=== PATIENT | male | born 1955 | race Caucasian/White ===

== ENCOUNTER 2016-07-10 23:05 | Inpatient (IN) | payer OTHER ==
--- NOTE | 2016-07-10 23:14 | EDM.PDOC ---
ED HPI SEPSIS - General Chief Complaint: Fever Stated Complaint: TEMP F OF 104 HAD CHEMO TODAY Time Seen by Provider: 07/10/16 23:12 Source of Information: Reports: Patient, Family History Limitations: Reports: No limitations - History of Present Illness INITIAL COMMENTS - FREE TEXT/NARRATIVE: post chemo today, fever 104 @ home. some cough. - Related Data Allergies/ADRs: Allergies Allergy/AdvReac Type Severity Reaction Status Date / Time No Known Allergies Allergy Verified 07/10/16 23:14 Home Meds: Home Meds Aspirin [Ecotrin] 81 mg PO DAILY 12/05/14 [History] Lisinopril [Zestril] 10 mg PO DAILY 12/05/14 [History] atorvaSTATin [Lipitor] 40 mg PO BEDTIME 07/13/15 [History] metFORMIN [Glucophage] 1,000 mg PO BIDMEALS 07/10/16 [History] Past Medical History HEENT History: Reports: Impaired vision Cardiovascular History: Reports: Hypertension Gastrointestinal History: Reports: GERD Genitourinary History: Reports: Other (see below) Other Genitourinary History: bladder cancer, currently on 5th treatment of chemo with one to go. Musculoskeletal History: Reports: None Neurological History: Reports: Other (see below) Other Neuro History: hx left leg hemangioendothelialoma, radiation done Endocrine/Metabolic History: Reports: Diabetes, type II Immunologic History: Reports: Immunosuppression, Other (see below) Other Immunologic History: pt currently receiving chemo Oncologic (Cancer) History: Reports: Bladder Other Oncologic History: On chemotherapy - Infectious Disease History Infectious Disease History: Reports: Chicken pox, Measles - Past Surgical History HEENT Surgical History: Reports: Tonsillectomy GI Surgical History: Reports: None Male Surgical History: Reports: Other (see below) Other Male Surgeries/Procedures: shunt to right ureter Endocrine Surgical History: Reports: None Neurological Surgical History: Reports: None Musculoskeletal Surgical History: Reports: Other (see below) Other Musculoskeletal Surgeries/Procedures:: nerve damage to left elbow. Oncologic Surgical History: Reports: None Dermatological Surgical History: Reports: Skin biopsy Social & Family History - Family History Family Medical History: Noncontributory - Tobacco Use Smoking Status *Q: Never Smoker Second Hand Smoke Exposure: Yes - Recreational Drug Use Recreational Drug Use: No ED ROS GENERAL - Review of Systems Review Of Systems: ROS reveals no pertinent complaints other than HPI. ED EXAM, SEPSIS - Physical Exam Exam: See Below Exam Limited By: No limitations General Appearance: alert, WD/WN, mild distress, other (distraught) Ears: hearing grossly normal Throat/Mouth: Normal voice, No airway compromise Head: atraumatic Neck: non-tender, full range of motion Respiratory/Chest: no respiratory distress Cardiovascular: regular rate, rhythm GI/Abdominal: soft, non tender Neurological: alert, oriented, normal cognition, normal gait, no motor/sensory deficits Psychiatric: anxious Skin: Warm, Dry Course - Vital Signs Last Recorded V/S: Last Vital Signs Temp 38.1 C 07/11/16 00:28 Pulse 94 07/11/16 00:28 Resp 15 07/11/16 00:28 BP 148/71 H 07/11/16 00:28 Pulse Ox 96 07/11/16 00:28 - Orders/Labs/Meds Orders: Active Orders 24 hr Category Date Time Status CULTURE BLOOD [BC] Stat Lab 07/10/16 23:15 Received CULTURE URINE [RM] Stat Lab 07/11/16 00:19 Received Labs: Laboratory Tests 07/10/16 07/10/16 07/10/16 Range/Units 23:15 23:15 23:15 WBC 11.8 H (5.0-10.0) 10^3/uL RBC 4.11 L (4.6-6.2) 10^6/uL Hgb 13.1 L (14.0-18.0) g/dL Hct 39.7 L (40.0-54.0) % MCV 96.6 (80-100) fL MCH 31.9 (27.0-34.0) pg MCHC 33.0 (33.0-35.0) g/dL Plt Count 176 (150-450) 10^3/uL Neut % (Auto) 89.1 H (42.2-75.2) % Lymph % (Auto) 3.3 L (20.5-50.1) % [place] % (Auto) 7.0 (2-8) % Eos % (Auto) 0.3 L (1.0-3.0) % Baso % (Auto) 0.3 (0.0-1.0) % Sodium 133 L (135-145) mmol/L Potassium 3.9 (3.6-5.0) mmol/L Chloride 100 L (101-111) mmol/L Carbon Dioxide 23.0 (21.0-31.0) mmol/L Anion Gap 13.9 BUN 23 H (7-18) mg/dL Creatinine 1.2 (0.6-1.3) mg/dL Est Cr Clr Drug Dosing 67.11 mL/min Estimated GFR (MDRD) > 60 BUN/Creatinine Ratio 19.16 Glucose 164 H (74-105) mg/dL Lactic Acid 1.9 (0.5-2.2) mmol/L Calcium 8.8 (8.4-10.2) mg/dl Total Bilirubin 1.1 H (0.2-1.0) mg/dL AST 20 (10-42) IU/L ALT 23 (10-60) IU/L Alkaline Phosphatase 103 (42-121) IU/L Total Protein 7.1 (6.7-8.2) g/dl Albumin 4.1 (3.2-5.5) g/dl Globulin 3.0 Albumin/Globulin Ratio 1.37 Urine Color (YELLOW) Urine Appearance (CLEAR) Urine pH (5.0-9.0) Ur Specific [place] (1.005-1.030) Urine Protein (NEGATIVE) Urine Glucose (UA) (NEGATIVE) Urine Ketones (NEGATIVE) Urine Occult Blood (NEGATIVE) Urine Nitrite (NEGATIVE) Urine Bilirubin (NEGATIVE) Urine Urobilinogen (0.2-1.0) mg/dL Ur Leukocyte Esterase (NEGATIVE) Urine RBC /HPF Urine WBC (0-5/HPF) /HPF Ur Epithelial Cells /HPF Urine Bacteria (0-FEW/HPF) /HPF Urine Mucus /LPF 07/10/16 Range/Units 23:41 WBC (5.0-10.0) 10^3/uL RBC (4.6-6.2) 10^6/uL Hgb (14.0-18.0) g/dL Hct (40.0-54.0) % MCV (80-100) fL MCH (27.0-34.0) pg MCHC (33.0-35.0) g/dL Plt Count (150-450) 10^3/uL Neut % (Auto) (42.2-75.2) % Lymph % (Auto) (20.5-50.1) % [place] % (Auto) (2-8) % Eos % (Auto) (1.0-3.0) % Baso % (Auto) (0.0-1.0) % Sodium (135-145) mmol/L Potassium (3.6-5.0) mmol/L Chloride (101-111) mmol/L Carbon Dioxide (21.0-31.0) mmol/L Anion Gap BUN (7-18) mg/dL Creatinine (0.6-1.3) mg/dL Est Cr Clr Drug Dosing mL/min Estimated GFR (MDRD) BUN/Creatinine Ratio Glucose (74-105) mg/dL Lactic Acid (0.5-2.2) mmol/L Calcium (8.4-10.2) mg/dl Total Bilirubin (0.2-1.0) mg/dL AST (10-42) IU/L ALT (10-60) IU/L Alkaline Phosphatase (42-121) IU/L Total Protein (6.7-8.2) g/dl Albumin (3.2-5.5) g/dl Globulin Albumin/Globulin Ratio Urine Color Yellow (YELLOW) Urine Appearance Cloudy (CLEAR) Urine pH 5.5 (5.0-9.0) Ur Specific [place] 1.025 (1.005-1.030) Urine Protein >=300 H (NEGATIVE) Urine Glucose (UA) Negative (NEGATIVE) Urine Ketones Negative (NEGATIVE) Urine Occult Blood Large H (NEGATIVE) Urine Nitrite Negative (NEGATIVE) Urine Bilirubin Negative (NEGATIVE) Urine Urobilinogen 1.0 (0.2-1.0) mg/dL Ur Leukocyte Esterase Small H (NEGATIVE) Urine RBC >100 H /HPF Urine WBC Semi-packed H (0-5/HPF) /HPF Ur Epithelial Cells Rare /HPF Urine Bacteria Few (0-FEW/HPF) /HPF Urine Mucus Few H /LPF Meds: Medications Discontinued Medications Generic Name Dose Route Start Last Admin Trade Name Freq PRN Reason Stop Dose Admin Acetaminophen 650 mg 07/10/16 23:31 07/10/16 23:33 Tylenol PO 07/10/16 23:32 650 mg NOW ONE Administration Metoprolol Tartrate 2.5 mg 07/10/16 23:35 07/10/16 23:51 Lopressor IVPUSH 07/10/16 23:36 Not Given ONETIME ONE - Re-Assessments/Exams Free Text/Narrative Re-Assessment/Exam: 07/11/16 00:42 results discussed with Pt and case with Dr Hoffman who kindly admitted Pt. Departure - Departure Time of Disposition: 00:42 Disposition: Admitted As Inpatient 64 Condition: good Clinical Impression: UTI, Urinary tract infectious disease Bladder cancer Qualifiers: Bladder location: unspecified site Qualified Code(s): C67.9 - Malignant neoplasm of bladder, unspecified Forms: ED Department Discharge - My Orders Last 24 Hours: My Active Orders 07/10/16 23:15 CULTURE BLOOD [BC] Stat - Assessment/Plan Last 24 Hours: My Active Orders 07/10/16 23:15 CULTURE BLOOD [BC] Stat
[2016-07-10] MEDS ORDERED: Acetaminophen 325 MG Tab PO ONE (23:31)
[2016-07-10] MEDS ORDERED: Metoprolol Tartrate 5 MG/5 ML SDV IVPUSH ONE (23:35)
[2016-07-10 23:44] LABS: CHLORIDE,CL 100 mmol/L (101-111); SODIUM,NA 133 mmol/L (135-145)
[2016-07-11] MEDS ORDERED: Magnesium Hydroxide 400 MG/5 ML Susp 30 ML Cup PO PRN (00:42)
[2016-07-11] MEDS ORDERED: Bisacodyl 10 MG Supp RECTAL PRN (00:42)
[2016-07-11] MEDS ORDERED: Enoxaparin 40 MG/0.4 ML Syringe SUBCUT ONE (00:54)
[2016-07-11] MEDS ORDERED: Ondansetron 4 MG/2 ML SDV IV PRN (01:00)
[2016-07-11] MEDS: Meropenem 1 GM in Sodium Chloride 0.9% 100 ML IV SCH ×4 (01:30→18:10)
[2016-07-11] MEDS: Sodium Chloride 0.9% 1,000 ML IV SCH ×2 (01:30→21:38)
--- NOTE | 2016-07-11 04:35 | HP ---
REASON FOR ADMISSION: Fever and chills following chemotherapy for urothelial carcinoma of the bladder on 07/10/2016. 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 This was diagnosed on 04/25/2015. Approximately 1 year ago, he underwent his 1st round of chemotherapy; BCG is being used as the chemotherapy to treat his bladder cancer. On May 12, he underwent instillation of BCG. This was performed by Dr. Wilson at [facility] in [place]. BCG is instilled through a Back catheter into the bladder and then drained. Milan was said to have tolerated the procedure well, but his , Bree, who is a nurse here at the hospital, stated that on their drive back from [place], she noted that he was flushed. He got home, took a nap, he woke up about 6:00 p.m. and complained that he was "freezing." Bree took an oral temperature and it was 104 degrees. She gave him ibuprofen, temperature went down to 102, but at bedtime had gone back up to 104. He had chills, he had no real nausea, but had 1 limited episode of vomiting. He had 1 loose stool. No skin rashes, no cough, no abdominal pain. He does have some dysuria. He was brought to the emergency room for further evaluation. In the Emergency Department, he was found to have a temperature initially of 100.2 and this renetta to 103, heart rate was 117, blood pressure 162/80, respiratory rate 28, oxygen saturation 94% on room air. He was given Tylenol in the ER, physician also gave him 2.5 mg IV of Lopressor. Labs and chest x-ray were done and he was referred for admission. PAST MEDICAL HISTORY: Urothelial carcinoma of the bladder, 04/25/2015. At the time of yesterday's procedure, no recurrent cancer was seen. Hypertension. Type 2 diabetes for the last 3 to 4 years, controlled. Last hemoglobin A1c was 5.8%. Dyslipidemia. He had ureteral obstruction and had temporary stents placed. He had a diverticulum of the urinary bladder, which was removed at time of last treatment. He has obstructive sleep apnea and uses CPAP. PAST SURGICAL HISTORY: Ulnar nerve transposition in 1988. Tonsils and adenoids. Ureteral stent placement, 04/25/2015. Cystoscopy, 04/25/2015. Removal of bladder diverticulum, 04/25/2015. Excision of bladder tumor, 04/25/2015. FAMILY HISTORY: Mother has had a variety of cancers including colon, lung, and breast, all separate tumors and is doing fairly well. His father, Gary, had diabetes and of cerebrovascular disease after he suffered a stroke. He had 3 sisters, 1 brother, 1 stepbrother. Stepbrother is , 1 sister had polio. SOCIAL HISTORY: Milan is to Bree, who is one of our nurses. They have 2 sons. One son, now 28, had Burkitt's lymphoma at the age of 7 and has done well. They have no grandchildren. Milan has never smoked cigarettes and drinks occasional social alcohol. He works for [employer] in the [employer] program. REVIEW OF SYSTEMS: Received the first of 3 planned treatments with BCG on 07/10/2016. Following the treatment, he was flushed. On arrival at home, he developed temperature of 104 degrees. He complained of chills, vomited x1. No blood in the emesis or loose stools. No blood by rectum. No skin rashes. No cough or shortness of breath. No abdominal pain. No calf or leg pain. Bree stated he did have a limited cough on the morning of the treatment, but no ongoing cough and no productive cough. In June 2015 following treatment at that time, he also developed high fevers and was admitted and treated for a urinary tract infection. We did look up the side effects of BCG. A common side effect is fever, but serious side effects include infections. No recent vision or hearing changes. No sore throat. No swallowing difficulties. He does not wear dentures or hearing aids. He has never had cataracts. He does wear reading glasses. No recent falls or injuries. No recent hospitalizations. CURRENT MEDICATIONS: 1. Atorvastatin 40 mg at bedtime. 2. Lisinopril 10 mg daily. 3. Metformin 1000 mg twice a day with meals. 4. Aspirin EC 81 mg daily. ALLERGIES: No known allergies. PHYSICAL EXAMINATION: Vital Signs: Blood pressure 134/56 on the left, 133/62 on the right. Heart rate has come down to 78, and is regular. Respiratory rate has come down to 16, is regular. Oxygen saturation is 95% on room air. Temperature on arrival on the nursing unit was 97.6, down from a high of 103 degrees in the Emergency Department. Height 5 feet 11 inches, weight 236 pounds. HEENT: WNL. Moist mucous membranes. Sclerae non-icteric. No adenopathy. Chest: clear but diminished bilateral breath sounds. Heart: regular, no murmurs. Abdomen: obese, soft, benign. Non-tender without guarding or rebound. Exts: calves soft, non-tender. Palpable pulses. Neuro: intact. Skin: clear. LABORATORY DATA AND IMAGING: CBC showed a white count of 11.8, with 89% neutrophils; hemoglobin and hematocrit were 13 and 39.7. Chemistry showed sodium 133, potassium 3.9, BUN and creatinine were 23 and 1.2 with a GFR of more than 60, and a creatinine clearance of 67. Lactic acid was normal at 1.9. LFTs were unremarkable. Urinalysis showed a cloudy yellow urine with a specific gravity of 1.025. Microscopic exam showed more than 100 RBCs per high-power field, and the high- power salmeron were also semi-packed with WBCs. Blood cultures and urine culture were ordered. A 2-view chest x-ray ordered in the emergency room, did not show an acute infiltrate and official reading is pending. IMPRESSION: A 61-year-old gentleman with known history of bladder cancer. He received an intra-bladder BCG treatment on 07/10/2016, and now presents with a temperature to 104 degrees and an apparent urinary tract infection. PLAN: 1. Denbo was admitted as an acute inpatient to the nursing unit. 2. He was started on meropenem 1 g IV every 8 hours. This was chosen as broad- spectrum antibiotic given his recent history. 3. His usual medications will be continued. 4. Tylenol was ordered for management of the fever. 5. He was started on normal saline at 50 mL an hour to prevent dehydration. 6. He was placed on a regular diet. 7. For DVT prophylaxis, MALIK hose were placed and enoxaparin 40 mg once daily was ordered. CODE STATUS: Full code. CONDITION AT THE TIME OF ADMISSION: Hemodynamically and neurologically stable. [facility] /[id number] [facility]
[2016-07-11] MEDS: Acetaminophen 325 MG Tab PO PRN ×2 (05:36→15:29)
[2016-07-11] MEDS: metFORMIN 500 MG Tab PO SCH ×2 (10:19→17:53)
[2016-07-11] MEDS: Aspirin 81 MG Tab.EC PO SCH (10:19)
[2016-07-11] MEDS: Lisinopril 10 MG Tab PO SCH (10:20)
[2016-07-12] MEDS: Meropenem 1 GM in Sodium Chloride 0.9% 100 ML IV SCH ×3 (03:35→18:04)
[2016-07-12] MEDS: Enoxaparin 40 MG/0.4 ML Syringe SUBCUT SCH (08:42)
[2016-07-12] MEDS: metFORMIN 500 MG Tab PO SCH ×2 (08:43→18:04)
[2016-07-12] MEDS: Lisinopril 10 MG Tab PO SCH (08:44)
[2016-07-12] MEDS: Aspirin 81 MG Tab.EC PO SCH (08:44)
--- NOTE | 2016-07-12 10:21 | PCM.PN ---
- General Info Date of Service: 07/12/16 Admission Dx/Problem (Free Text): This is a 61 y/O Moderately Obese male with Past Medical history of Urothelial Carcinoma of the bladder Dxed on 04/25/15, Hypertension, Diabetes II, Dyslipidemia, Pt was admitted after he he had BCG instilled through a Back Catheter into the bladder and drained on 07/10/16 at [facility]. on their way home to [place] he was flushed and at home he was "freezing" and home temperature was 104 F. The temperature was taken by his Bree who is a RN at [facility]. He was given Ibuprofen and the temperature down to 102 but again went back to 104 at bed time. He also had chill, but no nausea but vomited once at home. He was brought into [facility] ER and got admitted. Subjective Update: Today he is feeling good, No fever or chill, appetite is good and had BM last night Functional Status: Reports: pain controlled, tolerating diet, ambulating, urinating - Review of Systems General: Reports: Appetite (good). Denies: Fever, Malaise, Chills HEENT: Denies: headaches, post nasal drip, sinus congestion, sore throat Pulmonary: Denies: shortness of breath, pleuritic chest pain, cough, sputum, wheezing Cardiovascular: Denies: Chest Pain, Dyspnea on Exertion, Lightheadedness Gastrointestinal: Denies: Abdominal pain, Diarrhea, Nausea, Vomiting Genitourinary: Denies: dysuria, burning, pain, urgency, flank pain Musculoskeletal: Denies: neck pain, shoulder pain, foot pain, joint pain Skin: Denies: cyanosis, jaundice, bruising, pruritis, rash Neurological: Denies: Confusion, Tingling, Tremors, Weakness Psychiatric: Denies: confusion, anxiety, hallucinations - Patient Data Vitals - most recent: Last Vital Signs Temp 36.4 C 07/12/16 07:40 Pulse 84 07/12/16 07:40 Resp 20 07/12/16 07:40 BP 139/93 H 07/12/16 08:44 Pulse Ox 97 07/12/16 07:40 Weight - most recent: 107.456 kg I&O - last 24 hours: Intake & Output 07/11/16 07/12/16 07/12/16 22:59 06:59 14:59 Intake Total 1263 705 Output Total 500 600 300 Balance 763 105 -300 Lab Results last 24 hrs: Laboratory Results - last 24 hr 07/11/16 07/11/16 07/12/16 Range/Units 11:08 17:27 07:58 POC Glucose 131 H 186 H 132 H (70-105) mg/dl Med Orders - Current: Current Medications Acetaminophen (Tylenol) 650 mg PO Q4H PRN PRN Reason: Pain (mild 1-3 )/fever Last Admin: 07/11/16 15:29 Dose: 650 mg Aspirin (Halfprin) 81 mg PO DAILY [facility] Last Admin: 07/12/16 08:44 Dose: 81 mg Bisacodyl (Dulcolax) 10 mg RECTAL DAILY PRN PRN Reason: Constipation Enoxaparin Sodium (Lovenox) 40 mg SUBCUT DAILY [facility] Last Admin: 07/12/16 08:42 Dose: 40 mg Sodium Chloride (Normal Saline) 1,000 mls @ 50 mls/hr IV ASDIRECTED [facility] Last Admin: 07/11/16 21:38 Dose: 50 mls/hr Meropenem 1 gm/ Sodium (Chloride) 100 mls @ 200 mls/hr IV Q8H [facility] Last Admin: 07/12/16 03:35 Dose: 200 mls/hr Lisinopril (Prinivil) 10 mg PO DAILY [facility] Last Admin: 07/12/16 08:44 Dose: 10 mg Magnesium Hydroxide (Milk Of Magnesia) 30 ml PO DAILY PRN PRN Reason: Constipation Metformin HCl (Glucophage) 1,000 mg PO BIDMEALS [facility] Last Admin: 07/12/16 08:43 Dose: 1,000 mg Ondansetron HCl (Zofran) 4 mg IV Q6H PRN PRN Reason: Nausea/Vomiting Sodium Chloride (Saline Flush) 10 ml FLUSH ASDIRECTED PRN PRN Reason: Keep Vein Open Discontinued Medications Acetaminophen (Tylenol) 650 mg PO NOW ONE Stop: 07/10/16 23:32 Last Admin: 07/10/16 23:33 Dose: 650 mg Enoxaparin Sodium (Lovenox) 40 mg SUBCUT DAILY ONE Stop: 07/11/16 00:55 Last Admin: 07/11/16 01:33 Dose: 40 mg Meropenem 1 gm/ Sodium (Chloride) 100 mls @ 200 mls/hr IV Q8H [facility] Last Admin: 07/11/16 10:40 Dose: Not Given Metoprolol Tartrate (Lopressor) 2.5 mg IVPUSH ONETIME ONE Stop: 07/10/16 23:36 Last Admin: 07/10/16 23:51 Dose: Not Given - Exam Quality Assessment: DVT prophylaxis. No: supplemental oxygen, urine catheter General: alert, oriented, cooperative, no acute distress HEENT: Pupils equal, Pupils reactive, Mucous membr. moist/pink Neck: supple, no JVD, no thyromegaly. No: lymphadenopathy Lungs: Clear to auscultation, Normal respiratory effort. No: Crackles, Rales, Rhonchi, Wheezing Cardiovascular: Regular Rate, Regular Rhythm, No Murmurs Abdomen: bowel sounds present, soft, no tenderness, no distension. No: guarding (Male) Exam: Deferred Back Exam: normal inspection, full range of motion Extremities: no edema, normal pulses, no calf tenderness Skin: warm, dry, intact Neurological: no new focal deficit Psy/Mental Status: alert, normal affect, normal mood - Problem List & Annotations (1) Bladder cancer SNOMED Code(s): 713279179 Code(s): C67.9 - MALIGNANT NEOPLASM OF BLADDER, UNSPECIFIED Status: Acute Current Visit: Yes (2) Fever and chills SNOMED Code(s): 326293406 Code(s): R50.9 - FEVER, UNSPECIFIED Status: Acute Priority: High Current Visit: No Onset Date: ~07/10/16 (3) UTI (urinary tract infection) SNOMED Code(s): 60766536 Code(s): N39.0 - URINARY TRACT INFECTION, SITE NOT SPECIFIED Status: Acute Priority: High Current Visit: No Onset Date: ~07/11/16 Qualifiers: Urinary tract infection type: acute cystitis Hematuria presence: with hematuria Qualified Code(s): N30.01 - Acute cystitis with hematuria (4) Diabetes type 2, controlled SNOMED Code(s): 26636399 Code(s): E11.9 - TYPE 2 DIABETES MELLITUS WITHOUT COMPLICATIONS Status: Chronic Current Visit: No (5) Hypertension SNOMED Code(s): 51136278 Code(s): I10 - ESSENTIAL (PRIMARY) HYPERTENSION Status: Chronic Current Visit: No - Problem List Review Problem List Initiated/Reviewed/Updated: Yes - Plan Plan:: Mr. Rodgers is a 61 y/O Male with known history of Bladder cancer, has received an intra-bladder BCG treatment on 07/10/16 and presented to ED with Fever, Chill and UTI 1. Papillary Urothelial Carcinoma of the bladder: It's dXed on 04/25/15 -He is on treatment and getting floowed by Urology at [facility] , He will have second BCG treatment again on 07/17/16 2. Fever and Chill: This was likely from UTI as well as rxn to medication -He is afbrile since admission and Urine culture mixed emely and B/C showing no growth -Will continue Tylenol as nedded 3. Likely UTI: I reviewed U/A, it was cloudy with >300 mg/dl of protein in urine , but Nitrite was negative, and small Leukocyste esterase -He is now emperically treated for UTI with Meropenem and doing well -Will continue the current abx 4. Hypertension: Bp acceptable and will continue Lisinopril at 10 mg daily 5. Diabetes II: on oral hypoglycemic, Metformin 100 mg BID 6. DVT prophylaxis: On Enoxapain 7. Code Status: Full Code
--- NOTE | 2016-07-12 10:28 | PN ---
DATE: 07/11/2016 SUBJECTIVE: Mr. Rodgers was admitted overnight. He has a history of bladder cancer which was diagnosed in April of 2015. He has been treated with BCG. Yesterday, he started a new round of chemotherapy and received the first of 3 planned treatments. He has BCG instilled into the bladder through a Back catheter which is later drained out. He and his were on their way back from [place] when he became flushed. He came home, took a nap. When he got up, his temperature was 104; took ibuprofen, temperature went down to 102 but went back up again to 104. He had chills and came to the emergency room, was evaluated and admitted. At the time of admission, white count was 11.8 with a left shift. Urinalysis showed semi-packed white cells. One set of blood cultures was ordered through the ER and a urine culture was also ordered. Mr. Rodgers was admitted and was started on meropenem 1 g IV every 8 hours. He is also on IV normal saline. Review of his clinical data shows that he has done well overnight. Temperature gradually came down until this afternoon when it once again spiked to 101.6. Two more sets of blood cultures were drawn at that time. He has been afebrile since that time. The first set of blood cultures remains with no growth, and the urine culture is showing a mixed Barbara. He is taking in adequate fluids. He is voiding. There is no gross hematuria, and no dysuria. OBJECTIVE: General: He is lying comfortably in bed. He feels and looks much better. He voices no new concerns or complaints. Vital Signs: Blood pressure is 132/72, pulse 76, respiratory rate 20, oxygen saturation 98% on room air. Temperature this morning is 98.4. HEENT: Unremarkable. Mouth showed moist mucous membranes. Chest: Showed clear but diminished bilateral breath sounds. Abdomen: Obese, soft, benign, completely nontender. No guarding. No rebound. Extremities: Showed the calves to be soft and nontender. Neurologic: He was intact. LABORATORY DATA: His blood sugars are being monitored and these have been within acceptable limits. PLAN: We will continue on meropenem 1 g IV every 8 hours. He also continues on IV fluids for now as he has had fever overnight. Blood sugars are managed with metformin. We will continue to monitor the results of the three sets of blood cultures as well as urine culture. A CBC and BMP have been ordered for July 13. Overall, Mr. Rodgers is improved and doing better and can probably be discharged to home once cultures have shown no growth and he is clinically improved. We will communicate with his urologist, Dr. Jadiel Wilson, in [place] and inform him of the admission. [facility] /[id number] MTDD
[2016-07-12] MEDS: Sodium Chloride 0.9% 1,000 ML IV SCH (19:48)
[2016-07-13] MEDS: Meropenem 1 GM in Sodium Chloride 0.9% 100 ML IV SCH ×3 (02:53→19:16)
[2016-07-13 07:13] LABS: CHLORIDE,CL 103 mmol/L (101-111); SODIUM,NA 136 mmol/L (135-145)
[2016-07-13] MEDS: Lisinopril 10 MG Tab PO SCH (09:33)
[2016-07-13] MEDS: Enoxaparin 40 MG/0.4 ML Syringe SUBCUT SCH (09:34)
[2016-07-13] MEDS: metFORMIN 500 MG Tab PO SCH ×2 (09:35→16:59)
[2016-07-13] MEDS: Aspirin 81 MG Tab.EC PO SCH (09:36)
--- NOTE | 2016-07-13 11:02 | PCM.PN ---
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 on their way home to [place] he was flushed and at home he was "freezing" and home temperature was 104 F. The temperature was taken by his Bree who is a RN at [facility]. He was given Ibuprofen and the temperature down to 102 but again went back to 104 at bed time. He also had chill, but no nausea but vomited once at home. He was brought into [facility] ER and got admitted. He will go home on oral abx ( either Cipro or Levofloxacin) Subjective Update: Today he is feeling good, No fever or chill ( over the last 48 hrs) , appetite is good and had BM last night and has no respiratory problem. Functional Status: Reports: pain controlled, tolerating diet, ambulating, urinating - Review of Systems General: Reports: Appetite (good). Denies: Fever, Malaise, Chills HEENT: Denies: dysphasia, ear pain, headaches, sinus congestion Pulmonary: Denies: shortness of breath, pleuritic chest pain, cough, sputum, wheezing Cardiovascular: Denies: Chest Pain, Edema, Lightheadedness Gastrointestinal: Denies: Abdominal pain, Diarrhea, Nausea, Vomiting Genitourinary: Denies: dysuria, burning, urgency, flank pain Musculoskeletal: Denies: neck pain, shoulder pain, back pain, foot pain, joint pain Skin: Denies: cyanosis, jaundice, bruising, pruritis, rash Neurological: Denies: Confusion, Tingling, Tremors Psychiatric: Denies: confusion, anxiety - Patient Data Vitals - most recent: Last Vital Signs Temp 36.9 C 07/13/16 08:21 Pulse 76 07/13/16 08:21 Resp 20 07/13/16 08:21 BP 168/83 H 07/13/16 09:33 Pulse Ox 97 07/13/16 08:21 Weight - most recent: 107.456 kg I&O - last 24 hours: Intake & Output 07/12/16 07/13/16 07/13/16 22:59 06:59 14:59 Intake Total 876 400 Output Total 640 Balance 876 -240 Lab Results last 24 hrs: Laboratory Results - last 24 hr 07/12/16 07/13/16 07/13/16 Range/Units 17:17 06:18 06:18 WBC 5.7 (5.0-10.0) 10^3/uL RBC 3.58 L (4.6-6.2) 10^6/uL Hgb 11.4 L (14.0-18.0) g/dL Hct 35.4 L (40.0-54.0) % MCV 98.9 (80-100) fL MCH 31.8 (27.0-34.0) pg MCHC 32.2 L (33.0-35.0) g/dL RDW Not Reportable RDW Coeff of Betsy Not Reportable Plt Count 149 L (150-450) 10^3/uL MPV Not Reportable Neutrophils % (Manual) 66 % Lymphocytes % (Manual) 20 % Monocytes % (Manual) 9 % Eosinophils % (Manual) 5 % Sodium 136 (135-145) mmol/L Potassium 4.0 (3.6-5.0) mmol/L Chloride 103 (101-111) mmol/L Carbon Dioxide 26.0 (21.0-31.0) mmol/L Anion Gap 11.0 BUN 13 (7-18) mg/dL Creatinine 0.9 (0.6-1.3) mg/dL Est Cr Clr Drug Dosing 89.48 mL/min Estimated GFR (MDRD) > 60 Glucose 166 H (74-105) mg/dL POC Glucose 120 H (70-105) mg/dl Calcium 8.6 (8.4-10.2) mg/dl 07/13/16 Range/Units 07:53 WBC (5.0-10.0) 10^3/uL RBC (4.6-6.2) 10^6/uL Hgb (14.0-18.0) g/dL Hct (40.0-54.0) % MCV (80-100) fL MCH (27.0-34.0) pg MCHC (33.0-35.0) g/dL RDW RDW Coeff of Betsy Plt Count (150-450) 10^3/uL MPV Neutrophils % (Manual) % Lymphocytes % (Manual) % Monocytes % (Manual) % Eosinophils % (Manual) % Sodium (135-145) mmol/L Potassium (3.6-5.0) mmol/L Chloride (101-111) mmol/L Carbon Dioxide (21.0-31.0) mmol/L Anion Gap BUN (7-18) mg/dL Creatinine (0.6-1.3) mg/dL Est Cr Clr Drug Dosing mL/min Estimated GFR (MDRD) Glucose (74-105) mg/dL POC Glucose 132 H (70-105) mg/dl Calcium (8.4-10.2) mg/dl Devonte Results last 24 hrs: Microbiology 07/11/16 15:50 Aerobic Blood Culture - Preliminary Blood - Venous - Lab Draw NO GROWTH AFTER 1 DAY Anaerobic Blood Culture - Preliminary NO GROWTH AFTER 1 DAY 07/11/16 15:45 Aerobic Blood Culture - Preliminary Blood - Venous NO GROWTH AFTER 1 DAY Anaerobic Blood Culture - Preliminary NO GROWTH AFTER 1 DAY Med Orders - Current: Current Medications Acetaminophen (Tylenol) 650 mg PO Q4H PRN PRN Reason: Pain (mild 1-3 )/fever Last Admin: 07/11/16 15:29 Dose: 650 mg Aspirin (Halfprin) 81 mg PO DAILY [facility] Last Admin: 07/13/16 09:36 Dose: 81 mg Bisacodyl (Dulcolax) 10 mg RECTAL DAILY PRN PRN Reason: Constipation Enoxaparin Sodium (Lovenox) 40 mg SUBCUT DAILY [facility] Last Admin: 07/13/16 09:34 Dose: 40 mg Meropenem 1 gm/ Sodium (Chloride) 100 mls @ 200 mls/hr IV Q8H [facility] Last Admin: 07/13/16 10:36 Dose: 200 mls/hr Lisinopril (Prinivil) 10 mg PO DAILY [facility] Last Admin: 07/13/16 09:33 Dose: 10 mg Magnesium Hydroxide (Milk Of Magnesia) 30 ml PO DAILY PRN PRN Reason: Constipation Metformin HCl (Glucophage) 1,000 mg PO BIDMEALS [facility] Last Admin: 07/13/16 09:35 Dose: 1,000 mg Ondansetron HCl (Zofran) 4 mg IV Q6H PRN PRN Reason: Nausea/Vomiting Sodium Chloride (Saline Flush) 10 ml FLUSH ASDIRECTED PRN PRN Reason: Keep Vein Open Discontinued Medications Acetaminophen (Tylenol) 650 mg PO NOW ONE Stop: 07/10/16 23:32 Last Admin: 07/10/16 23:33 Dose: 650 mg Enoxaparin Sodium (Lovenox) 40 mg SUBCUT DAILY ONE Stop: 07/11/16 00:55 Last Admin: 07/11/16 01:33 Dose: 40 mg Meropenem 1 gm/ Sodium (Chloride) 100 mls @ 200 mls/hr IV Q8H [facility] Last Admin: 07/11/16 10:40 Dose: Not Given Sodium Chloride (Normal Saline) 1,000 mls @ 50 mls/hr IV ASDIRECTED [facility] Last Admin: 07/12/16 19:48 Dose: 50 mls/hr Metoprolol Tartrate (Lopressor) 2.5 mg IVPUSH ONETIME ONE Stop: 07/10/16 23:36 Last Admin: 07/10/16 23:51 Dose: Not Given - Exam Quality Assessment: DVT prophylaxis. No: supplemental oxygen, urine catheter General: alert, oriented, cooperative, no acute distress HEENT: Pupils equal, Pupils reactive, Mucous membr. moist/pink Neck: supple, no thyromegaly. No: lymphadenopathy Lungs: Clear to auscultation, Normal respiratory effort. No: Crackles, Rales, Wheezing Cardiovascular: Regular Rate, Regular Rhythm, Murmurs Abdomen: bowel sounds present, soft, no tenderness, distension (Male) Exam: Deferred Back Exam: normal inspection Extremities: no edema, normal pulses, no calf tenderness Skin: warm, dry, intact Neurological: no new focal deficit, normal speech, normal tone Psy/Mental Status: alert, normal affect, normal mood - Problem List & Annotations (1) Bladder cancer SNOMED Code(s): 028265607 Code(s): C67.9 - MALIGNANT NEOPLASM OF BLADDER, UNSPECIFIED Status: Acute Current Visit: Yes (2) Fever and chills SNOMED Code(s): 493942596 Code(s): R50.9 - FEVER, UNSPECIFIED Status: Acute Priority: High Current Visit: No Onset Date: ~07/10/16 (3) UTI (urinary tract infection) SNOMED Code(s): 66022448 Code(s): N39.0 - URINARY TRACT INFECTION, SITE NOT SPECIFIED Status: Acute Priority: High Current Visit: No Onset Date: ~07/11/16 Qualifiers: Urinary tract infection type: acute cystitis Hematuria presence: with hematuria Qualified Code(s): N30.01 - Acute cystitis with hematuria (4) Diabetes type 2, controlled SNOMED Code(s): 41652113 Code(s): E11.9 - TYPE 2 DIABETES MELLITUS WITHOUT COMPLICATIONS Status: Chronic Current Visit: No (5) Hypertension SNOMED Code(s): 26187225 Code(s): I10 - ESSENTIAL (PRIMARY) HYPERTENSION Status: Chronic Current Visit: No - Problem List Review Problem List Initiated/Reviewed/Updated: Yes - Plan Plan:: Mr. Rodgers is a 61 y/O Male with known history of Bladder cancer, has received an intra-bladder BCG treatment on 07/10/16 and few hours later after coming from [place], presented to ED with Fever, Chill and UTI 1. Papillary Urothelial Carcinoma of the bladder: It's dXed on 04/25/15 -He is on treatment and getting floowed by Urology at [facility] , He will have second BCG treatment again on 07/17/16 2. Fever and Chill: This was likely from UTI as well as rxn to medication -He is afbrile since admission ( over 48 hrs) and Urine culture showed mixed emely and B/C showing no growth -Will continue Tylenol as nedded for Temp >100 3. Likely UTI: I reviewed U/A, it was cloudy with >300 mg/dl of protein in urine , but Nitrite was negative, and small Leukocyste esterase -He is now emperically treated for UTI with Meropenem and doing well -Will continue the current abx 4. Hypertension: Bp acceptable and will continue Lisinopril at 10 mg daily 5. Diabetes II: on oral hypoglycemic, Metformin 100 mg BID 6. DVT prophylaxis: On Enoxapain 7. Code Status: Full Code
[2016-07-13] MEDS: Sodium Chloride 0.9% 10 ML Syringe FLUSH PRN ×2 (19:10→19:56)
[2016-07-14] MEDS: Sodium Chloride 0.9% 10 ML Syringe FLUSH PRN ×3 (03:09→10:33)
[2016-07-14] MEDS: Meropenem 1 GM in Sodium Chloride 0.9% 100 ML IV SCH ×2 (03:11→10:34)
[2016-07-14] MEDS: metFORMIN 500 MG Tab PO SCH (08:22)
[2016-07-14] MEDS: Aspirin 81 MG Tab.EC PO SCH (08:22)
[2016-07-14] MEDS: Lisinopril 10 MG Tab PO SCH (08:23)
[2016-07-14] MEDS: Enoxaparin 40 MG/0.4 ML Syringe SUBCUT SCH (08:24)
[2016-07-14 11:21] VITALS: BP 167/64
--- NOTE | 2016-07-16 08:02 | DISCH ---
FINAL DIAGNOSES: 1. History of fever and chills. 2. Suspect a urinary tract infection. 3. Urothelial bladder carcinoma. 4. Hypertension. 5. Diabetes. HISTORY OF PRESENT ILLNESS: The patient is a 61-year-old male was admitted on July 11, 2016 because of episodes of fever and chills. Documented temperature at 104, decreased at home. Had 1 episode of loose stool. He has been getting BCG chemotherapy for his malignancy. On admission, the patient was noted to have blood pressure of 134/56, heart rate of 78 beats per minute, respirations 16 breaths per minute, oxygen saturation 95%. Emergency room temperature of 103 degrees Fahrenheit. Most of the documented physical exam is unremarkable. LABORATORY DATA: Workup done in the hospital. Initial urinalysis showed large occult blood with more than 100 rbc and packed field wbc. Microbiologic studies did not show any growth on blood culture. Initially urine culture showed mixed gram-positive organisms 3 colony types. HOSPITAL COURSE: The patient was admitted in the medical-surgical bed. He was started on empiric meropenem 1 g every 8 hours. The rest of his medications were continued. The patient remained hemodynamically stable during his stay. Started to feel better. He has been afebrile since admission. The patient will have a followup appointment with [facility] with regard to his second BCG treatment. DISCHARGE EXAM: Vital Signs: Blood pressure 167/64, heart rate of 64 beats per minute, respirations 20 breaths per minute, oxygen saturation 97%. DISCHARGE INSTRUCTIONS: The patient is to follow up with his primary care provider within 1 week from discharge to complete the antibiotics and monitor for intolerance on oral antibiotics. Keep adequate hydration. Follow up within 1 week or to come back to the emergency room if with emergent health concerns. [facility] /[id number]
== END 2016-07-14 12:32 | disposition home or self-care (01) | DRG 687 ==
LOC: DL.ED 23:05 → DL.MS 07-11 00:42 → DL.ED 07-11 01:01
PROVIDERS: ADMIT Internal Medicine; ATTEND Internal Medicine
DX: C67.9 Malignant neoplasm of bladder, unspecified (principal); N39.0 Urinary tract infection, site not specified; G47.33 Obstructive sleep apnea (adult) (pediatric); Z96.0 Presence of urogenital implants; I10 Essential (primary) hypertension; E11.9 Type 2 diabetes mellitus without complications; E78.5 Hyperlipidemia, unspecified; E66.9 Obesity, unspecified; Z79.84 Long term (current) use of oral hypoglycemic drugs; Z79.82 Long term (current) use of aspirin
CPT/HCPCS: 36415; 71020; 80048; 80053; 81001; 82962; 83605; 85025; 87040; 87086; 99285; A9270-GY; J1650; J2185; J7030; J7050

== ENCOUNTER 2019-08-17 08:54 | Emergency (ER) | payer MEDICARE, OTHER ==
--- NOTE | 2019-08-17 09:08 | EDM.PDOC ---
ED HPI GENERAL MEDICAL PROBLEM - General Chief Complaint: Laceration Stated Complaint: CUT ON LEG Time Seen by Provider: 08/17/19 09:05 Source of Information: Reports: Patient, Old Records, RN, RN Notes Reviewed History Limitations: Reports: No Limitations - History of Present Illness INITIAL COMMENTS - FREE TEXT/NARRATIVE: Pt presents to ER with c/o cut to right lower leg yesterday that he cannot get to stop bleeding. He accidentally cut himself on clean/new tin kelsey. Denies any other injury. Last Tetanus vaccine >10 years ago. Onset: Sudden Onset Date: 08/16/19 Duration: Constant Quality: Reports: Ache Severity: Mild Improves with: Reports: None Worsens with: Reports: None Treatments EVP: Reports: Home Treatments (Dressing) - Related Data Allergies Allergy/AdvReac Type Severity Reaction Status Date / Time No Known Allergies Allergy Verified 07/10/16 23:14 Home Meds: Home Meds lisinopriL [Zestril] 10 mg PO DAILY 12/05/14 [History] atorvaSTATin [Lipitor] 40 mg PO BEDTIME 07/13/15 [History] metFORMIN [Glucophage] 1,000 mg PO BIDMEALS 07/10/16 [History] Insulin Aspart [NovoLOG] 8 - 15 units SQ TID 08/17/19 [History] Insulin Degludec [Tresiba] 20 units SQ BEDTIME 08/17/19 [History] Levothyroxine Sodium [Levoxyl] 50 mcg PO DAILY 08/17/19 [History] Oxybutynin Chloride [Ditropan Xl] 10 mg PO DAILY 08/17/19 [History] Triamterene/Hydrochlorothiazid [Triamterene-HCTZ 37.5-25 MG] 1 tab PO DAILY 06/02 [History] Past Medical History HEENT History: Reports: Impaired Vision Cardiovascular History: Reports: Hypertension Respiratory History: Reports: None, Pneumonia, Recurrent, Sleep Apnea Gastrointestinal History: Reports: None Genitourinary History: Reports: Other (See Below) Other Genitourinary History: bladder cancer, Prophylactically had 1st chemo on 11 of july Musculoskeletal History: Reports: None Neurological History: Reports: Other (See Below) Other Neuro History: hx left leg hemangioendothelialoma, radiation done Endocrine/Metabolic History: Reports: Diabetes, Type II Hematologic History: Reports: Blood Transfusion(s) Immunologic History: Reports: Immunosuppression, Other (See Below) Other Immunologic History: pt currently receiving chemo Oncologic (Cancer) History: Reports: Bladder, Other (See Below) Other Oncologic History: 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 ED EXAM, GENERAL - Physical Exam Exam: See Below Exam Limited By: No Limitations General Appearance: Alert, WD/WN, No Apparent Distress Head: Atraumatic, Normocephalic Respiratory/Chest: No Respiratory Distress Cardiovascular: Normal Peripheral Pulses Extremities: Normal Range of Motion, Other (Rt anterior lower leg with 3cm linear flap laceration with slow persistent oozing of blood. No FB, no signs of infection.) Neurological: Alert, Oriented, Normal Gait, No Motor/Sensory Deficits Psychiatric: Anxious Skin Exam: Warm, Dry ED TRAUMA EXTREMITY PROCEDURES - Laceration/Wound Repair Right Anterior Leg Lac/Wound Length In cm: 3 Appearance: Subcutaneous, Linear, Clean Distal NVT: Neuro & Vascular Intact, No Tendon Injury Anesthetic Type: Local Local Anesthesia - Lidocaine (Xylocaine): 1% with EPI Local Anesthetic Volume: Other (10) Skin Prep: Chlorhexidine (Hibiciens), Saline Saline Irrigation (cc's): 500 Exploration/Debridement/Repair: Wound Explored, In a Bloodless Field, Explored to Base, Minimal Debridement, Minimally Undermined Closed With: Sutures Suture Size: 3-0 # of Sutures: 3 Suture Type: Nylon, Mattress Drain Placement: No Sterile Dressing Applied: Nurse Tetanus Status Addressed: Yes Complications: No Course - Vital Signs Last Recorded V/S: Last Vital Signs Temp 97.5 F 08/17/19 09:04 Pulse 66 08/17/19 09:04 Resp 18 08/17/19 09:04 BP 142/82 H 08/17/19 09:04 Pulse Ox 98 08/17/19 09:04 - Orders/Labs/Meds Orders: Active Orders 24 hr Category Date Time Status Vaccines to be Administered [RC] PER UNIT ROUTINE Care 08/17/19 09:08 Active Meds: Medications Discontinued Medications Generic Name Dose Route Start Last Admin Trade Name Tom PRN Reason Stop Dose Admin Bacitracin 1 dose 08/17/19 09:14 08/17/19 09:20 Bacitracin Oint 1 Gm TOP 08/17/19 09:15 1 dose ONETIME ONE Administration Diphtheria/Tetanus/Acell Pertussis 0.5 ml 08/17/19 09:08 08/17/19 09:15 Adacel IM 08/17/19 09:09 0.5 ml .ONCE ONE Administration Lidocaine/Epinephrine 20 ml 08/17/19 09:14 08/17/19 09:22 Xylocaine 1% With Epinephrine 1:100,000 INJECT 08/17/19 09:15 20 ml ONETIME ONE Administration Departure - Departure Time of Disposition: 09:37 Disposition: Home, Self-Care 01 Condition: Good Clinical Impression: Laceration of skin with delay in treatment Laceration of leg Qualifiers: Encounter type: initial encounter Laterality: right Qualified Code(s): S81.811A - Laceration without foreign body, right lower leg, initial encounter - Discharge Information *PRESCRIPTION DRUG MONITORING PROGRAM REVIEWED*: Not Applicable *COPY OF PRESCRIPTION DRUG MONITORING REPORT IN PATIENT PACO: Not Applicable Instructions: Laceration Care, Adult, [id number] Forms: ED Department Discharge Additional Instructions: Leave dressing in place for 24 hours. Follow up in clinic for suture removal in 7 to 10 days. Return to ER if any further problems. Sepsis Event Note - Focused Exam Vital Signs: Vital Signs Temp Pulse Resp BP Pulse Ox 08/17/19 09:04 97.5 F 66 18 142/82 H 98 Date Exam was Performed: 08/17/19 Time Exam was Performed: 09:36 - My Orders Last 24 Hours: My Active Orders 08/17/19 09:08 Vaccines to be Administered [RC] PER UNIT ROUTINE - Assessment/Plan Last 24 Hours: My Active Orders 08/17/19 09:08 Vaccines to be Administered [RC] PER UNIT ROUTINE
[2019-08-17] MEDS: Diphtheria,Pertussis(Acell),Tetanus Vaccine 0.5 ML SDV IM ONE (09:15)
[2019-08-17] MEDS: Bacitracin Oint 1 GM U/D Packet TOP ONE (09:20)
[2019-08-17] MEDS: Lidocaine 1% with EPINEPHrine 1:100,000 20 ML MDV INJECT ONE (09:22)
[2019-08-17 09:33] VITALS: BP 142/82; PULSE 66
== END 2019-08-17 09:54 | disposition home or self-care (01) ==
LOC: DL.ED 08:54
DX: S81.811A Laceration without foreign body, right lower leg, initial encounter (principal); I10 Essential (primary) hypertension; E11.9 Type 2 diabetes mellitus without complications; Z79.4 Long term (current) use of insulin; Z79.899 Other long term (current) drug therapy; Z23 Encounter for immunization; W26.8XXA Contact with other sharp object(s), not elsewhere classified, initial encounter
CPT/HCPCS: 12002; 90471; 90715; 99282

== ENCOUNTER 2021-01-19 16:58 | Emergency (ER) | payer MEDICARE, OTHER ==
[2021-01-19] MEDS ORDERED: Sodium Chloride 0.9% 10 ML Syringe FLUSH PRN (17:09)
--- NOTE | 2021-01-19 17:33 | EDM.PDOC ---
ED HPI GENERAL MEDICAL PROBLEM - General Chief Complaint: General Stated Complaint: BLACKED OUT, CAME TO [facility], DIDNT REMEMBER DAY... Time Seen by Provider: 01/19/21 17:22 Source of Information: Reports: Patient History Limitations: Reports: No Limitations - History of Present Illness INITIAL COMMENTS - FREE TEXT/NARRATIVE: 65 y/o F brought in by his because he reports he cannot remember the day. Pt states he remembers taking the mail to the mailbox today but then remebers waking up at a different place with no idea how he got to the place in his truck. Pt states he must have blacked out again because the next thing he knew he was sitting at home with no recollection of how he got there. Pt is a type 2 diabetic and uses a continuous blood glucose monitor to evaluate his glucose and denies low glucose levels today. Pt has no complaints. He denies recent trauma, fever, cough, chills, drugs, etoh, cp, db, abd pn, diff voiding, constipation, diarrhea, extremity pain, recent changes to meds. Pts droe him to the hospital where he walked in without assistance and no apparent distress per . - Related Data Allergies Allergy/AdvReac Type Severity Reaction Status Date / Time No Known Allergies Allergy Verified 07/10/16 23:14 Home Meds: Home Meds lisinopriL [Zestril] 10 mg PO DAILY 12/05/14 [History] atorvaSTATin [Lipitor] 40 mg PO BEDTIME 07/13/15 [History] metFORMIN [Glucophage] 1,000 mg PO BIDMEALS 07/10/16 [History] Insulin Aspart [NovoLOG] 8 - 15 units SQ TID 08/17/19 [History] Insulin Degludec [Tresiba] 20 units SQ BEDTIME 08/17/19 [History] Levothyroxine Sodium [Levoxyl] 50 mcg PO DAILY 08/17/19 [History] Oxybutynin Chloride [Ditropan Xl] 10 mg PO DAILY 08/17/19 [History] Triamterene/Hydrochlorothiazid [Triamterene-HCTZ 37.5-25 MG] 1 tab PO DAILY 08/17/19 [History] Past Medical History HEENT History: Reports: Impaired Vision Cardiovascular History: Reports: Hypertension Respiratory History: Reports: None, Pneumonia, Recurrent, Sleep Apnea Gastrointestinal History: Reports: None Genitourinary History: Reports: Other (See Below) Other Genitourinary History: bladder cancer, Prophylactically had 1st chemo on 11 of july Musculoskeletal History: Reports: None Neurological History: Reports: Other (See Below) Other Neuro History: hx left leg hemangioendothelialoma, radiation done Psychiatric History: Reports: None Endocrine/Metabolic History: Reports: Diabetes, Type II Hematologic History: Reports: Blood Transfusion(s) Immunologic History: Reports: Immunosuppression, Other (See Below) Other Immunologic History: pt currently receiving chemo Oncologic (Cancer) History: Reports: Bladder, Other (See Below) Other Oncologic History: 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 ED EXAM, GENERAL - Physical Exam Exam: See Below Exam Limited By: No Limitations General Appearance: Alert (The pt appeared aox4 but had an instance where he could not remeber telling me his was waiting for him in the parking lot and could not remember telling me he drinks rhea light on occasion) Eye Exam: Bilateral Eye: PERRL (conjugate gaze) Ears: Normal External Exam, Normal Canal, Hearing Grossly Normal, Normal TMs Nose: Normal Inspection, Normal Mucosa, No Blood Throat/Mouth: Normal Lips, Normal Teeth, Normal Gums, Other (masseration to the L side of tongue appearing as though pt bit his tongue) Head: Atraumatic, Normocephalic Neck: Supple, Non-Tender Respiratory/Chest: No Respiratory Distress, Lungs Clear, Normal Breath Sounds Cardiovascular: Normal Peripheral Pulses, Regular Rate, Rhythm, No JVD Peripheral Pulses: 2+: Radial (L), Radial (R) GI/Abdominal: Soft, Non-Tender, No Distention (Male) Exam: Deferred Rectal (Males) Exam: Deferred Back Exam: Normal Inspection, Full Range of Motion Extremities: Normal Inspection, Normal Range of Motion, Non-Tender, Normal Capillary Refill, No Pedal Edema Neurological: Alert, Oriented, CN II-XII Intact, Normal Cognition, Normal Gait, Normal Reflexes, No Motor/Sensory Deficits Psychiatric: Normal Affect, Normal Mood Skin Exam: Warm, Dry, Intact #1 Interpretation EKG Date: 01/19/21 Time: 17:21 Rhythm: NSR Lucan: Normal P-Wave: Present QRS: Normal ST-T: Normal QT: Normal Course - Vital Signs Last Recorded V/S: Last Vital Signs Temp 97.1 F 01/19/21 17:11 Pulse 70 01/19/21 17:11 Resp 18 01/19/21 17:11 BP 166/83 H 01/19/21 17:11 Pulse Ox 95 01/19/21 17:11 - Orders/Labs/Meds Orders: Active Orders 24 hr Category Date Time Status Peripheral IV Care [RC] . DIRECTED Care 01/19/21 17:10 Active LACTIC ACID [CHEM] Routine Lab 01/19/21 20:04 Ordered Sodium Chloride 0.9% [Saline Flush] Med 01/19/21 17:09 Active 10 ml FLUSH ASDIRECTED PRN Peripheral IV Insertion Adult [OM.PC] Routine Oth 01/19/21 17:09 Ordered Medication Orders Sodium Chloride (Sodium Chloride 0.9% 10 Ml Syringe) 10 ml FLUSH ASDIRECTED PRN PRN Reason: Keep Vein Open Last Admin: 01/19/21 17:26 Dose: 10 ml Documented by: [place] Labs: Laboratory Tests 01/19/21 01/19/21 01/19/21 Range/Units 17:22 17:26 17:26 WBC 13.6 H (5.0-10.0) 10^3/uL RBC 4.24 L (4.6-6.2) 10^6/uL Hgb 13.6 L D (14.0-18.0) g/dL Hct 41.9 (40.0-54.0) % MCV 98.8 (80-100) fL MCH 32.1 (27.0-34.0) pg MCHC 32.5 L (33.0-35.0) g/dL Plt Count 211 (150-450) 10^3/uL Neut % (Auto) 84.9 H (42.2-75.2) % Lymph % (Auto) 8.4 L (20.5-50.1) % [place] % (Auto) 5.7 (2-8) % Eos % (Auto) 0.6 L (1.0-3.0) % Baso % (Auto) 0.4 (0.0-1.0) % D-Dimer, Quantitative (0-400) ng/mL Sodium 140 (136-145) mmol/L Potassium 3.4 L (3.5-5.1) mmol/L Chloride 102 (98-107) mmol/L Carbon Dioxide 27 (21-32) mmol/L Anion Gap 14.4 H (7-13) mEq/L BUN 21 H (7-18) mg/dL Creatinine 1.18 (0.70-1.30) mg/dL Est Cr Clr Drug Dosing 62.72 mL/min Estimated GFR (MDRD) > 60 BUN/Creatinine Ratio 17.8 (No establ ref range) Glucose 113 H (70-99) mg/dL POC Glucose 118 H (70-99) mg/dL Lactic Acid (0.4-2.0) mmol/L Calcium 9.0 (8.5-10.1) mg/dL Magnesium 1.8 (1.8-2.4) mg/dL Total Bilirubin 0.7 (0.2-1.0) mg/dL AST 16 (15-37) U/L ALT 38 (16-63) U/L Alkaline Phosphatase 124 H (46-116) U/L Troponin I High Sens 6 (<=76) pg/mL C-Reactive Protein < 0.2 (0.0-0.9) mg/dL B-Natriuretic Peptide 15 (0-100) pg/ml Total Protein 7.0 (6.4-8.2) g/dL Albumin 3.7 (3.4-5.0) g/dL Globulin 3.3 Albumin/Globulin Ratio 1.1 Amylase 41 (25-115) U/L Lipase 57 L (73-393) U/L TSH, Ultra Sensitive 10.13 H (0.36-3.74) uIU/mL Urine Color (YELLOW) Urine Appearance (CLEAR) Urine pH (5.0-9.0) Ur Specific [place] (1.005-1.030) Urine Protein (NEGATIVE) Urine Glucose (UA) (NEGATIVE) Urine Ketones (NEGATIVE) Urine Occult Blood (NEGATIVE) Urine Nitrite (NEGATIVE) Urine Bilirubin (NEGATIVE) Urine Urobilinogen (0.2-1.0) mg/dL Ur Leukocyte Esterase (NEGATIVE) Urine RBC (0-5) /HPF Urine WBC (0-5/HPF) /HPF Ur Epithelial Cells (NOT SEEN) /HPF Amorphous Sediment (NOT SEEN) /HPF Urine Bacteria (0-FEW/HPF) /HPF Influenza Type A RNA (NEGATIVE) Influenza Type B RNA (NEGATIVE) SARS-CoV-2 RNA (JUAN F) (NEGATIVE) 01/19/21 01/19/21 01/19/21 Range/Units 17:26 17:26 17:33 WBC (5.0-10.0) 10^3/uL RBC (4.6-6.2) 10^6/uL Hgb (14.0-18.0) g/dL Hct (40.0-54.0) % MCV (80-100) fL MCH (27.0-34.0) pg MCHC (33.0-35.0) g/dL Plt Count (150-450) 10^3/uL Neut % (Auto) (42.2-75.2) % Lymph % (Auto) (20.5-50.1) % [place] % (Auto) (2-8) % Eos % (Auto) (1.0-3.0) % Baso % (Auto) (0.0-1.0) % D-Dimer, Quantitative 406 H (0-400) ng/mL Sodium (136-145) mmol/L Potassium (3.5-5.1) mmol/L Chloride (98-107) mmol/L Carbon Dioxide (21-32) mmol/L Anion Gap (7-13) mEq/L BUN (7-18) mg/dL Creatinine (0.70-1.30) mg/dL Est Cr Clr Drug Dosing mL/min Estimated GFR (MDRD) BUN/Creatinine Ratio (No establ ref range) Glucose (70-99) mg/dL POC Glucose (70-99) mg/dL Lactic Acid 2.1 H* (0.4-2.0) mmol/L Calcium (8.5-10.1) mg/dL Magnesium (1.8-2.4) mg/dL Total Bilirubin (0.2-1.0) mg/dL AST (15-37) U/L ALT (16-63) U/L Alkaline Phosphatase (46-116) U/L Troponin I High Sens (<=76) pg/mL C-Reactive Protein (0.0-0.9) mg/dL B-Natriuretic Peptide (0-100) pg/ml Total Protein (6.4-8.2) g/dL Albumin (3.4-5.0) g/dL Globulin Albumin/Globulin Ratio Amylase (25-115) U/L Lipase (73-393) U/L TSH, Ultra Sensitive (0.36-3.74) uIU/mL Urine Color (YELLOW) Urine Appearance (CLEAR) Urine pH (5.0-9.0) Ur Specific [place] (1.005-1.030) Urine Protein (NEGATIVE) Urine Glucose (UA) (NEGATIVE) Urine Ketones (NEGATIVE) Urine Occult Blood (NEGATIVE) Urine Nitrite (NEGATIVE) Urine Bilirubin (NEGATIVE) Urine Urobilinogen (0.2-1.0) mg/dL Ur Leukocyte Esterase (NEGATIVE) Urine RBC (0-5) /HPF Urine WBC (0-5/HPF) /HPF Ur Epithelial Cells (NOT SEEN) /HPF Amorphous Sediment (NOT SEEN) /HPF Urine Bacteria (0-FEW/HPF) /HPF Influenza Type A RNA Negative (NEGATIVE) Influenza Type B RNA Negative (NEGATIVE) SARS-CoV-2 RNA (JUAN F) Negative (NEGATIVE) 01/19/21 Range/Units 17:49 WBC (5.0-10.0) 10^3/uL RBC (4.6-6.2) 10^6/uL Hgb (14.0-18.0) g/dL Hct (40.0-54.0) % MCV (80-100) fL MCH (27.0-34.0) pg MCHC (33.0-35.0) g/dL Plt Count (150-450) 10^3/uL Neut % (Auto) (42.2-75.2) % Lymph % (Auto) (20.5-50.1) % [place] % (Auto) (2-8) % Eos % (Auto) (1.0-3.0) % Baso % (Auto) (0.0-1.0) % D-Dimer, Quantitative (0-400) ng/mL Sodium (136-145) mmol/L Potassium (3.5-5.1) mmol/L Chloride (98-107) mmol/L Carbon Dioxide (21-32) mmol/L Anion Gap (7-13) mEq/L BUN (7-18) mg/dL Creatinine (0.70-1.30) mg/dL Est Cr Clr Drug Dosing mL/min Estimated GFR (MDRD) BUN/Creatinine Ratio (No establ ref range) Glucose (70-99) mg/dL POC Glucose (70-99) mg/dL Lactic Acid (0.4-2.0) mmol/L Calcium (8.5-10.1) mg/dL Magnesium (1.8-2.4) mg/dL Total Bilirubin (0.2-1.0) mg/dL AST (15-37) U/L ALT (16-63) U/L Alkaline Phosphatase (46-116) U/L Troponin I High Sens (<=76) pg/mL C-Reactive Protein (0.0-0.9) mg/dL B-Natriuretic Peptide (0-100) pg/ml Total Protein (6.4-8.2) g/dL Albumin (3.4-5.0) g/dL Globulin Albumin/Globulin Ratio Amylase (25-115) U/L Lipase (73-393) U/L TSH, Ultra Sensitive (0.36-3.74) uIU/mL Urine Color Yellow (YELLOW) Urine Appearance Clear (CLEAR) Urine pH 5.5 (5.0-9.0) Ur Specific [place] >= 1.030 (1.005-1.030) Urine Protein 30 H (NEGATIVE) Urine Glucose (UA) Negative (NEGATIVE) Urine Ketones Negative (NEGATIVE) Urine Occult Blood Negative (NEGATIVE) Urine Nitrite Negative (NEGATIVE) Urine Bilirubin Negative (NEGATIVE) Urine Urobilinogen 0.2 (0.2-1.0) mg/dL Ur Leukocyte Esterase Negative (NEGATIVE) Urine RBC 0-5 (0-5) /HPF Urine WBC 0-5 (0-5/HPF) /HPF Ur Epithelial Cells Moderate H (NOT SEEN) /HPF Amorphous Sediment Few (NOT SEEN) /HPF Urine Bacteria Moderate H (0-FEW/HPF) /HPF Influenza Type A RNA (NEGATIVE) Influenza Type B RNA (NEGATIVE) SARS-CoV-2 RNA (JUAN F) (NEGATIVE) Meds: Medications Generic Name Dose Route Start Last Admin Trade Name Freq PRN Reason Stop Dose Admin Sodium Chloride 10 ml 01/19/21 17:09 01/19/21 17:26 Sodium Chloride 0.9% 10 Ml Syringe FLUSH 10 ml ASDIRECTED PRN Administration Keep Vein Open Discontinued Medications Generic Name Dose Route Start Last Admin Trade Name Freq PRN Reason Stop Dose Admin Lactated Ringer's 1,000 mls @ 999 mls/hr 01/19/21 18:15 01/19/21 19:59 Ringers, Lactated IV 01/19/21 19:15 999 mls/hr .BOLUS ONE Administration Levetiracetam 1,000 mg/ Premix 200 mls @ 800 mls/hr 01/19/21 19:32 01/19/21 19:47 IV 01/19/21 19:33 800 mls/hr ONETIME ONE Administration - Re-Assessments/Exams Free Text/Narrative Re-Assessment/Exam: 01/19/21 20:[address] Kaur about [address] results and pt presentation. He reviewed the CT and called back and would like to have the pt transferred to [facility]. He also asked that the pt be given 1000mg Keppra to help prevent further seizures. Awilda with [facility] call informed me that she would call me back once she had contacted the Hospitalist that would be taking care of the pt. [place] called back about 1945 hrs and I spoke with Dr. Rodríguez the hospitalist who accepted the pt for transfer to a higher level of care and further workup. Dr. Kaur asked that the pt be transferred by ground ALS . Departure - Departure Time of Disposition: 20:10 (DR. Rodríguez) Disposition: DC/Tfer to Acute Hospital 02 Condition: Serious Clinical Impression: Cerebral infarction Qualifiers: Cerebral infarction mechanism: unspecified mechanism Qualified Code(s): I63.9 - Cerebral infarction, unspecified - Discharge Information *PRESCRIPTION DRUG MONITORING PROGRAM REVIEWED*: Not Applicable *COPY OF PRESCRIPTION DRUG MONITORING REPORT IN PATIENT PACO: Not Applicable Forms: ED Department Discharge, Interfacility Transfer EMTALA Sepsis Event Note (ED) - Focused Exam Vital Signs: Vital Signs Temp Pulse Resp BP Pulse Ox 01/19/21 17:11 97.1 F 70 18 166/83 H 95 - My Orders Last 24 Hours: My Active Orders 01/19/21 17:09 Sodium Chloride 0.9% [Saline Flush] 10 ml FLUSH ASDIRECTED PRN Peripheral IV Insertion Adult [OM.PC] Routine 01/19/21 17:10 Peripheral IV Care [RC] . DIRECTED 01/19/21 20:04 LACTIC ACID [CHEM] Routine - Assessment/Plan Last 24 Hours: My Active Orders 01/19/21 17:09 Sodium Chloride 0.9% [Saline Flush] 10 ml FLUSH ASDIRECTED PRN Peripheral IV Insertion Adult [OM.PC] Routine 01/19/21 17:10 Peripheral IV Care [RC] . DIRECTED 01/19/21 20:04 LACTIC ACID [CHEM] Routine
[2021-01-19 17:42] VITALS: BP 166/83; PULSE 70
[2021-01-19 18:02] LABS: ANION GAP 14.4 mEq/L (7-13); CHLORIDE,CL 102 mmol/L (98-107); SODIUM,NA 140 mmol/L (136-145)
[2021-01-19] MEDS ORDERED: Lactated Ringers 1,000 ML IV ONE (18:15)
[2021-01-19 18:16] LABS: CORONAVIRUS COVID-19 NAA NEGATIVE (NEGATIVE)
--- NOTE | 2021-01-19 18:55 | CR ---
PROCEDURE INFORMATION: Exam: XR Chest Exam date and time: 01/19/2021 6:18 PM Age: 65 years old Clinical indication: Other: Syncope; Additional info: Elevated wbc, syncope TECHNIQUE: Imaging protocol: XR of the chest. Views: 1 view. COMPARISON: No relevant prior studies available. FINDINGS: Lungs: Unremarkable. No consolidation. Pleural spaces: Unremarkable. No pleural effusion. No pneumothorax. Heart/Mediastinum: Unremarkable. No cardiomegaly. Bones/joints: Unremarkable. IMPRESSION: No acute findings.
--- NOTE | 2021-01-19 18:55 | CT ---
PROCEDURE INFORMATION: Exam: CT Head Without Contrast Exam date and time: 01/19/2021 6:16 PM Age: 65 years old Clinical indication: Other: Syncope; Additional info: Memory deficits cant remember the day. TECHNIQUE: Imaging protocol: Computed tomography of the head without contrast. Radiation optimization: All CT scans at this facility use at least one of these dose optimization techniques: automated exposure control; mA and/or kV adjustment per patient size (includes targeted exams where dose is matched to clinical indication); or iterative reconstruction. COMPARISON: No relevant prior studies available. FINDINGS: Brain: Global atrophy with patchy areas of chronic ischemic change in the hemispheric white matter. Ill-defined areas of hypoattenuation observed in both occipital lobe somewhat worse on the left. There also appear to ill-defined areas of decreased attenuation in the right and left cerebellar hemisphere. Cerebral ventricles: No ventriculomegaly. Paranasal sinuses: Visualized sinuses are unremarkable. No fluid levels. Mastoid air cells: Visualized mastoid air cells are well aerated. Bones/joints: Unremarkable. No acute fracture. Soft tissues: Unremarkable. IMPRESSION: Multiple areas of decreased attenuation in both occipital lobes and both cerebellar hemispheres concerning for focal areas of infarction. Posterior reversible encephalopathy might also be considered might also be considered if there is a history of hypertension. MR is recommended for further evaluation.
[2021-01-19] MEDS ORDERED: levETIRAcetam in NaCl (iso-os) 1,000 MG in Premix Bag 1 BAG IV ONE ×2 (19:32)
== END 2021-01-19 21:01 ==
LOC: DL.ED 16:58
DX: I63.9 Cerebral infarction, unspecified (principal); I10 Essential (primary) hypertension; E11.9 Type 2 diabetes mellitus without complications; Z79.4 Long term (current) use of insulin; Z79.899 Other long term (current) drug therapy; Z20.822 Contact with and (suspected) exposure to COVID-19
CPT/HCPCS: 0240U; 36415; 70450; 71045; 80053; 81001; 82150; 82947; 83605; 83690; 83735; 83880; 84443; 84484; 85025; 85379; 86140; 93005; 96374; 99285; J1953; J7120

== ENCOUNTER 2021-06-24 15:53 | Emergency (ER) | payer MEDICARE, OTHER ==
[2021-06-24] MEDS ORDERED: Albuterol/Ipratropium 3.0-0.5 MG/3 ML Neb Soln NEB ONE (16:57)
[2021-06-24 17:01] VITALS: BP 178/88
[2021-06-24 17:04] LABS: ANION GAP 16.4 mEq/L (7-13)
[2021-06-24 17:16] VITALS: PULSE 93
[2021-06-24] MEDS ORDERED: Acetaminophen 325 MG Tab PO ONE (17:20)
[2021-06-24 17:38] LABS: CORONAVIRUS COVID-19 NAA NEGATIVE (NEGATIVE); RESPIRATORY SYNCYTIAL VIR NAA NEGATIVE (NEGATIVE)
[2021-06-24] MEDS ORDERED: Albuterol 6.7 GM Inhaler INH ONE (17:53)
== END 2021-06-24 18:11 | disposition home or self-care (01) ==
LOC: DL.ED 15:53
DX: J11.1 Influenza due to unidentified influenza virus with other respiratory manifestations (principal); I10 Essential (primary) hypertension; E11.9 Type 2 diabetes mellitus without complications; Z20.822 Contact with and (suspected) exposure to COVID-19
CPT/HCPCS: 0241U; 36415; 71045; 80053; 84484; 85025; 93005; 94640; 99284; A9270; J7620-GY

== ENCOUNTER 2023-09-24 18:25 | Emergency (ER) | payer MEDICARE, OTHER ==
[2023-09-24 18:42] VITALS: BP 125/66
[2023-09-24 19:35] LABS: BASOPHILS PERCENT AUTO 0.1 % (0.0-1.0); EOSINOPHILS PERCENT AUTO 2.9 % (1.0-3.0); HEMATOCRIT 41.9 % (40.0-54.0); HEMOGLOBIN 13.1 g/dL (14.0-18.0); LYMPHOCYTES PERCENT AUTO 10.8 % (20.5-50.1); MEAN CORPUSCULAR HGB CONC 31.3 g/dL (33.0-35.0); MEAN CORPUSCULAR VOLUME 99.1 fL (80-100); MONOCYTES PERCENT AUTO 8.3 % (2-8); NEUTROPHILS PERCENT AUTO 77.9 % (42.2-75.2); PLATELET COUNT,PLT 360 10^3/uL (150-450); RED BLOOD CELL COUNT 4.23 10^6/uL (4.6-6.2); WHITE BLOOD CELL COUNT,WBC 12.8 10^3/uL (5.0-10.0)
[2023-09-24 19:55] LABS: ALANINE AMINOTRANSFERASE,ALT 17 U/L (16-63); ALBUMIN 3.1 g/dL (3.4-5.0); ALKALINE PHOSPHATASE 70 U/L (46-116); ANION GAP 7.8 mEq/L (7-13); ASPARTATE AMNIOTRANSFERASE,AST 8 U/L (15-37); BILIRUBIN TOTAL 0.6 mg/dL (0.2-1.0); BLOOD UREA NITROGEN,BUN 28 mg/dL (7-18); BUN/CREATININE RATIO 16.8 (No establ ref range); C-REACTIVE PROTEIN 10.02 ng/dL (<=0.50); CALCIUM 9.2 mg/dL (8.5-10.1); CARBON DIOXIDE,CO2 32 mmol/L (21-32); CHLORIDE,CL 101 mmol/L (98-107); CREATININE 1.67 mg/dL (0.70-1.30); GLUCOSE RANDOM 206 mg/dL (70-99); POTASSIUM,K 4.8 mmol/L (3.5-5.1); PROTEIN TOTAL,TP 6.7 g/dL (6.4-8.2); SODIUM,NA 136 mmol/L (136-145)
[2023-09-24 19:58] LABS: A/G RATIO 0.86; ESTIMATED GFR 44 mL/min (>=60); LACTIC ACID 1.6 mmol/L (0.4-2.0)
[2023-09-24] MEDS: Acetaminophen 500 MG Tab PO ONE (20:34)
[2023-09-24] MEDS: Fluconazole 100 MG Tab PO ONE (20:35)
[2023-09-24] MEDS: Betamethasone Dipropionate/Clotrimazole 0.05-1% Crm 15 GM Tube TOP ONE (20:35)
[2023-09-24 20:56] VITALS: PULSE 84
== END 2023-09-24 20:57 | disposition home or self-care (01) ==
LOC: DL.ED 18:25
DX: B37.2 Candidiasis of skin and nail (principal); I10 Essential (primary) hypertension; E11.9 Type 2 diabetes mellitus without complications; Z79.4 Long term (current) use of insulin; Z79.899 Other long term (current) drug therapy; Z79.84 Long term (current) use of oral hypoglycemic drugs
CPT/HCPCS: 36415; 80053; 83605; 85025; 86140; 99283; A9270

== ENCOUNTER 2023-09-26 13:29 | Inpatient (IN) | payer MEDICARE, OTHER ==
[2023-09-26 14:14] LABS: BASOPHILS PERCENT AUTO 0.1 % (0.0-1.0); EOSINOPHILS PERCENT AUTO 5.2 % (1.0-3.0); HEMATOCRIT 36.9 % (40.0-54.0); HEMOGLOBIN 11.6 g/dL (14.0-18.0); LYMPHOCYTES PERCENT AUTO 10.6 % (20.5-50.1); MEAN CORPUSCULAR HEMOGLOBIN 31.1 pg (27.0-34.0); MEAN CORPUSCULAR HGB CONC 31.4 g/dL (33.0-35.0); MEAN CORPUSCULAR VOLUME 98.9 fL (80-100); NEUTROPHILS PERCENT AUTO 76.1 % (42.2-75.2); PLATELET COUNT,PLT 369 10^3/uL (150-450); RED BLOOD CELL COUNT 3.73 10^6/uL (4.6-6.2); WHITE BLOOD CELL COUNT,WBC 13.9 10^3/uL (5.0-10.0)
[2023-09-26] MEDS: Sodium Chloride 0.9% 1,000 ML IV ONE (14:20)
[2023-09-26] MEDS: diphenhydrAMINE 50 MG/ML SDV IVPUSH ONE (14:25)
[2023-09-26] MEDS: Famotidine 20 MG/2 ML SDV IVPUSH ONE (14:25)
[2023-09-26 14:37] LABS: LACTIC ACID 1.2 mmol/L (0.4-2.0)
[2023-09-26 14:43] LABS: ALBUMIN 2.6 g/dL (3.4-5.0); ANION GAP 11.4 mEq/L (7-13); BILIRUBIN TOTAL 0.6 mg/dL (0.2-1.0); BUN/CREATININE RATIO 23.1 (No establ ref range); C-REACTIVE PROTEIN 11.27 ng/dL (<=0.50); CALCIUM 8.7 mg/dL (8.5-10.1); CREATININE 2.25 mg/dL (0.70-1.30); EST CRCL DRUG DOSING (CG) 30.55 mL/min; POTASSIUM,K 4.4 mmol/L (3.5-5.1); PROTEIN TOTAL,TP 6.1 g/dL (6.4-8.2)
[2023-09-26 14:44] LABS: A/G RATIO 0.74
[2023-09-26] MEDS: Sodium Chloride 0.9% 2,000 ML IV ONE (14:54)
[2023-09-26] MEDS: cefTRIAXone 1 GM Vial IVPUSH ONE (14:54)
[2023-09-26] MEDS: methylPREDNISolone Sodium Succinate 125 MG/2 ML SDV IVPUSH ONE ×2 (14:57→15:07)
[2023-09-26] MEDS: Acetaminophen 500 MG Tab PO ONE (14:57)
[2023-09-26] MEDS: Fluconazole 100 MG Tab PO ONE (14:58)
[2023-09-26] MEDS ORDERED: Acetaminophen/HYDROcodone 325-5 MG Tab PO PRN (16:34)
[2023-09-26] MEDS ORDERED: Sodium Chloride 0.9% 1,000 ML IV SCH (16:45)
[2023-09-26] MEDS ORDERED: hydrOXYzine HCl 10 MG Tab PO PRN (16:54)
[2023-09-26] MEDS ORDERED: Glucagon,Human Recombinant 1 MG Vial IM PRN (16:57)
[2023-09-26] MEDS ORDERED: 50% Dextrose in Water 50 ML Syringe IVPUSH PRN (16:57)
[2023-09-26 18:35] LABS: APPEARANCE,URINE CLEAR (CLEAR); BILIRUBIN,URINE NEGATIVE (NEGATIVE); COLOR,URINE YELLOW (YELLOW); GLUCOSE,URINE NEGATIVE (NEGATIVE); KETONES,URINE NEGATIVE (NEGATIVE); LEUKOCYTE ESTERASE,URINE TRACE (NEGATIVE); NITRITE,URINE NEGATIVE (NEGATIVE); OCCULT BLOOD,URINE NEGATIVE (NEGATIVE); PROTEIN,URINE NEGATIVE (NEGATIVE); UROBILINOGEN,URINE 0.2 mg/dL (0.2-1.0)
[2023-09-26] MEDS: Vancomycin 2 GM in Sodium Chloride 0.9% 500 ML IV ONE ×2 (18:53→19:08)
[2023-09-26] MEDS: Insulin Lispro 100 Units/ML 3 ML Vial SUBCUT SCH (18:57)
[2023-09-26] MEDS: VANCOmycin 1.75 GM/350 ML 1.75 GM in Premix Bag 1 BAG IV SCH (19:07)
[2023-09-26 20:04] LABS: BACTERIA,URINE FEW /HPF (0-FEW/HPF); EPITHELIAL CELLS,URINE FEW /HPF (NOT SEEN); MUCUS,URINE FEW /LPF (NOT SEEN); RBC,URINE 0-5 /HPF (0-5)
[2023-09-26] MEDS: atorvaSTATin 20 MG Tab PO SCH (22:16)
[2023-09-26] MEDS: Aspirin 81 MG Tab.EC PO SCH (22:16)
[2023-09-26] MEDS: Insulin Glarg,Human.Rec.Analog 100 Unit/ML 10 ML Vial SUBCUT SCH (22:19)
[2023-09-27] MEDS: Levothyroxine 75 MCG Tab PO SCH (05:28)
[2023-09-27] MEDS ORDERED: Sodium Chloride 0.9% 1,000 ML IV SCH (06:00)
[2023-09-27 06:11] LABS: HEMATOCRIT 36.2 % (40.0-54.0); HEMOGLOBIN 11.4 g/dL (14.0-18.0); MEAN CORPUSCULAR HEMOGLOBIN 31.1 pg (27.0-34.0); MEAN CORPUSCULAR HGB CONC 31.5 g/dL (33.0-35.0); MEAN CORPUSCULAR VOLUME 98.9 fL (80-100); RED BLOOD CELL COUNT 3.66 10^6/uL (4.6-6.2); WHITE BLOOD CELL COUNT,WBC 11.2 10^3/uL (5.0-10.0)
[2023-09-27 06:30] LABS: ANION GAP 11.8 mEq/L (7-13); CALCIUM 8.9 mg/dL (8.5-10.1); CREATININE 1.54 mg/dL (0.70-1.30); EST CRCL DRUG DOSING (CG) 45.36 mL/min; POTASSIUM,K 4.8 mmol/L (3.5-5.1)
[2023-09-27] MEDS: Enoxaparin 40 MG/0.4 ML Syringe SUBCUT SCH (08:55)
[2023-09-27] MEDS ORDERED: traMADol 50 MG Tab PO PRN (09:38)
[2023-09-27] MEDS ORDERED: oxyCODONE 5 MG Tab PO PRN (09:39)
[2023-09-27] MEDS: Oxybutynin 5 MG Tab.ER PO SCH (11:19)
[2023-09-27] MEDS: Fenofibrate Nanocrystallized 145 MG Tab PO SCH (11:19)
[2023-09-27] MEDS: cefTRIAXone 2 GM Vial IVPUSH SCH (11:20)
[2023-09-27] MEDS: Famotidine 20 MG/2 ML SDV IVPUSH ONE (11:21)
[2023-09-27] MEDS: Triamcinolone Acetonide 0.1% Crm 15 GM Tube TOP SCH (11:21)
[2023-09-27] MEDS: Dexamethasone 4 MG/ML SDV IVPUSH ONE (11:21)
[2023-09-27] MEDS: Insulin Lispro 100 Units/ML 3 ML Vial SUBCUT SCH (12:23)
[2023-09-27] MEDS: Acetaminophen 325 MG Tab PO PRN (14:24)
[2023-09-27] MEDS: oxyCODONE 5 MG Tab PO ONE (14:34)
[2023-09-27] MEDS ORDERED: Pantoprazole 40 MG Tab.CR PO SCH (16:00)
[2023-09-27] MEDS ORDERED: Insulin Glarg,Human.Rec.Analog 100 Unit/ML 10 ML Vial SUBCUT SCH ×2 (21:00)
[2023-09-27] MEDS ORDERED: Triamcinolone Acetonide 0.1% Crm 15 GM Tube TOP SCH (21:00)
[2023-09-27] MEDS: Saccharomyces Boulardii (Probiotic) 250 MG Cap PO SCH (21:23)
[2023-09-27] MEDS: Loratadine 10 MG Tab PO SCH (21:23)
[2023-09-27] MEDS: Dexamethasone 4 MG Tab PO SCH (21:23)
[2023-09-27] MEDS ORDERED: Glucagon,Human Recombinant 1 MG Vial IM PRN (21:25)
[2023-09-27] MEDS ORDERED: 50% Dextrose in Water 50 ML Syringe IVPUSH PRN (21:25)
[2023-09-27] MEDS: Insulin Lispro 100 Units/ML 3 ML Vial SUBCUT ONE (21:31)
[2023-09-28] MEDS: oxyCODONE 5 MG Tab PO PRN (05:38)
[2023-09-28 06:50] LABS: BASOPHILS PERCENT AUTO 0.2 % (0.0-1.0); EOSINOPHILS PERCENT AUTO 2.5 % (1.0-3.0); HEMATOCRIT 34.2 % (40.0-54.0); HEMOGLOBIN 10.8 g/dL (14.0-18.0); LYMPHOCYTES PERCENT AUTO 8.7 % (20.5-50.1); MEAN CORPUSCULAR HEMOGLOBIN 30.9 pg (27.0-34.0); MEAN CORPUSCULAR HGB CONC 31.6 g/dL (33.0-35.0); MONOCYTES PERCENT AUTO 5.7 % (2-8); NEUTROPHILS PERCENT AUTO 82.9 % (42.2-75.2); PLATELET COUNT,PLT 316 10^3/uL (150-450); RED BLOOD CELL COUNT 3.49 10^6/uL (4.6-6.2)
[2023-09-28 07:06] LABS: A/G RATIO 0.73; ALBUMIN 2.7 g/dL (3.4-5.0); ANION GAP 11.4 mEq/L (7-13); BILIRUBIN TOTAL 0.6 mg/dL (0.2-1.0); BUN/CREATININE RATIO 23.7 (No establ ref range); C-REACTIVE PROTEIN 3.87 ng/dL (<=0.50); CALCIUM 8.8 mg/dL (8.5-10.1); CREATININE 1.31 mg/dL (0.70-1.30); EST CRCL DRUG DOSING (CG) 53.32 mL/min; MAGNESIUM 1.9 mg/dL (1.8-2.4); POTASSIUM,K 4.4 mmol/L (3.5-5.1); PROTEIN TOTAL,TP 6.4 g/dL (6.4-8.2)
[2023-09-28] MEDS: Famotidine 20 MG Tab PO SCH (08:50)
[2023-09-28] MEDS: Insulin Lispro 100 Units/ML 3 ML Vial SUBCUT SCH (08:54)
[2023-09-28] MEDS: VANCOmycin 1.5 GM/300 ML 300 ML IV SCH (14:17)
[2023-09-29] MEDS: hydrALAZINE 20 MG/ML SDV IVPUSH PRN (04:53)
[2023-09-29 06:45] LABS: HEMATOCRIT 35.5 % (40.0-54.0); HEMOGLOBIN 11.4 g/dL (14.0-18.0); MEAN CORPUSCULAR HEMOGLOBIN 31.1 pg (27.0-34.0); MEAN CORPUSCULAR HGB CONC 32.1 g/dL (33.0-35.0); PLATELET COUNT,PLT 318 10^3/uL (150-450); RED BLOOD CELL COUNT 3.66 10^6/uL (4.6-6.2); WHITE BLOOD CELL COUNT,WBC 9.4 10^3/uL (5.0-10.0)
[2023-09-29 06:50] LABS: BASOPHILS PERCENT AUTO 0.2 % (0.0-1.0); EOSINOPHILS PERCENT AUTO 2.1 % (1.0-3.0); LYMPHOCYTES PERCENT AUTO 13.4 % (20.5-50.1); MONOCYTES PERCENT AUTO 8.5 % (2-8); NEUTROPHILS PERCENT AUTO 75.8 % (42.2-75.2)
[2023-09-29 07:05] LABS: A/G RATIO 0.81; ALBUMIN 2.9 g/dL (3.4-5.0); ANION GAP 14.1 mEq/L (7-13); BILIRUBIN TOTAL 0.6 mg/dL (0.2-1.0); BUN/CREATININE RATIO 24.6 (No establ ref range); C-REACTIVE PROTEIN 1.88 ng/dL (<=0.50); CALCIUM 9.1 mg/dL (8.5-10.1); CREATININE 1.22 mg/dL (0.70-1.30); EST CRCL DRUG DOSING (CG) 57.26 mL/min; MAGNESIUM 1.9 mg/dL (1.8-2.4); POTASSIUM,K 4.1 mmol/L (3.5-5.1); PROTEIN TOTAL,TP 6.5 g/dL (6.4-8.2)
[2023-09-29 07:13] LABS: BAND PERCENT MAN 1 %; LYMPHOCYTES PERCENT MAN 13 % (20-50); MONOCYTES PERCENT MAN 9 % (2-8); SEG NEUTROPHILS PERCENT MAN 75 % (42-75)
[2023-09-29 07:14] LABS: EOSINOPHILS PERCENT MAN 2 % (1-3)
[2023-09-29] MEDS ORDERED: Promethazine 25 MG Tab PO PRN (08:50)
[2023-09-29] MEDS ORDERED: traMADol 50 MG Tab PO PRN (08:50)
[2023-09-29] MEDS: Lisinopril 10 MG Tab PO SCH (11:00)
[2023-09-29] MEDS: Hydrochlorothiazide/Triamterene 25-37.5 Tab PO SCH (11:00)
[2023-09-29 13:08] VITALS: PULSE 75
[2023-09-29 13:15] VITALS: BP 147/82
[2023-09-29] MEDS ORDERED: metFORMIN 500 MG Tab PO SCH (18:00)
[2023-09-30 12:42] LABS: HBS AB <3.10 IU/L; HCV AB BY CIA INTERP Negative (Negative); HEPC AB BY CIA INDEX 0.02 IV
[2023-10-01] MEDS ORDERED: Fluconazole 100 MG Tab PO SCH (09:00)
[2023-10-01 15:42] LABS: ANA BY ELISA, IGG W/RFLX IFA None Detected (None Detected)
== END 2023-09-29 13:30 | disposition home or self-care (01) | DRG 872 ==
LOC: DL.ED 13:29 → INTOOBSV 15:10 → OBSVTOIN 15:10 → DL.MS 15:10
PROVIDERS: ADMIT Student in an Organized Health Care Education/Training Program; ATTEND Internal Medicine
DX: A41.9 Sepsis, unspecified organism (principal); D84.9 Immunodeficiency, unspecified; N17.9 Acute kidney failure, unspecified; L03.113 Cellulitis of right upper limb; I10 Essential (primary) hypertension; E11.9 Type 2 diabetes mellitus without complications; L03.116 Cellulitis of left lower limb; L03.115 Cellulitis of right lower limb; L03.314 Cellulitis of groin; R65.20 Severe sepsis without septic shock; N18.9 Chronic kidney disease, unspecified; C67.9 Malignant neoplasm of bladder, unspecified; M17.12 Unilateral primary osteoarthritis, left knee; G47.30 Sleep apnea, unspecified; H91.90 Unspecified hearing loss, unspecified ear; D63.1 Anemia in chronic kidney disease; E11.22 Type 2 diabetes mellitus with diabetic chronic kidney disease; E03.9 Hypothyroidism, unspecified; I12.9 Hypertensive chronic kidney disease with stage 1 through stage 4 chronic kidney disease, or unspecified chronic kidney disease; E11.65 Type 2 diabetes mellitus with hyperglycemia; E78.00 Pure hypercholesterolemia, unspecified; N32.81 Overactive bladder; E66.9 Obesity, unspecified; B37.2 Candidiasis of skin and nail; Z79.4 Long term (current) use of insulin; Z79.84 Long term (current) use of oral hypoglycemic drugs; Z79.82 Long term (current) use of aspirin; Z79.899 Other long term (current) drug therapy; Z87.01 Personal history of pneumonia (recurrent); Z96.659 Presence of unspecified artificial knee joint; Z79.890 Hormone replacement therapy; Z68.36 Body mass index [BMI] 36.0-36.9, adult
CPT/HCPCS: 36415; 80048; 80053; 80202; 81001; 82550; 82947; 83605; 83735; 83935; 84300; 84443; 85025; 85027; 85651; 86038; 86140; 86706; 86803; 87040; 87389; 87641; 96361; 96374; 96375; 97161-GP; 99223; 99232; 99233; 99238; 99284-25; 99285; A9270-GY; J0360; J0696; J1100; J1200; J1650; J1815-GY; J2919; J3370; J3372; J3490; J7030; J7040; J7050; J8540